=== PATIENT | male | born 1965 | race Caucasian/White ===

== ENCOUNTER 2019-07-28 16:37 | Emergency (ER) | payer BC ==
[2019-07-28] MEDS ORDERED: NA CHLORIDE 0.9% 1,000 ML ONE (17:28)
[2019-07-28 17:56] LABS: Absolute Lymphocytes (CBC) 2.3 K/uL (0.7-4.9); Basophils % 0.6 % (0-1.3); Hematocrit 43.8 % (39.6-49.0); Lymphocytes % 24.3 % (15.3-44.8); MPV 7.6 fL (7.6-11.3); RBC Red Blood Cell Count 4.85 M/uL (4.33-5.43)
--- NOTE | 2019-07-28 18:04 | RAD REPORT ---
EXAM DESCRIPTION: US - Extremity Venous Uni Ltd - 07/28/2019 5:59 pm CLINICAL HISTORY: Pain;Swelling Leg swelling and edema. COMPARISON: <Comparisons> FINDINGS: Left lower extremity venous system was interrogated with Doppler technique. Normal flow, c ompressibility and augmentation was noted. There is no DVT present. IMPRESSION: No evidence of left lower extremity deep venous thrombosis.
[2019-07-28 18:05] LABS: Potassium 3.1 mmol/L (3.5-5.1); Protime INR 0.96
[2019-07-28] MEDS ORDERED: POTASSIUM 25 MEQ EFFERV TAB ONE (18:24)
[2019-07-28] MEDS ORDERED: SMZ./TMP. 800/160 MG TABLET ONE (18:50)
[2019-07-28] MEDS ORDERED: DOXYCYCLINE 100 MG CAP PO ONE (18:50)
--- NOTE | 2019-07-28 18:56 | ER ---
Nurse's Notes [facility] Name: Michael Patel Age: 54 yrs Sex: Male : 1965 Arrival Date: 07/28/2019 Time: 16:41 Bed 27 Private MD: Amilcar Hoyos Diagnosis: Cellulitis of left lower limb Presentation: 07/28 16:44 Presenting complaint: Left lower leg redness, pain, and swelling upon waking today. hb Transition of care: patient was not received from another setting of care. Onset of symptoms was July 28, 2019. Risk Assessment: Do you want to hurt yourself or someone else?. Care prior to arrival: None. 16:44 Method Of Arrival: Ambulatory hb 16:44 Acuity: CEDRICK 3 hb 17:44 Initial Sepsis Screen: Does the patient meet any 2 criteria? No. Patient's initial rv sepsis screen is negative. Does the patient have a suspected source of infection? Yes: Skin breakdown/wound. Historical: - Allergies: 16:46 No Known Allergies; hb - Home Meds: 16:46 Simvastatin Oral [Active]; Nifedipine Oral [Active]; losartan oral oral [Active]; hb Humulin R [Active]; - PMHx: 16:46 Diabetes - IDDM; Insulin Pump; Hypertension; hb - PSHx: 16:46 Right arm; Appendectomy; hb - Immunization history:: Adult Immunizations up to date. - Social history:: Smoking status: Patient/guardian denies using tobacco. - Ebola Screening: : No symptoms or risks identified at this time. Screenin:44 Abuse screen: Denies threats or abuse. Denies injuries from another. Nutritional rv screening: No deficits noted. Tuberculosis screening: No symptoms or risk factors identified. Fall Risk None identified. Assessment: 17:42 General: Appears in no apparent distress. comfortable, Behavior is calm, cooperative. rv Pain: Complains of pain in left leg. Neuro: Level of Consciousness is awake, alert, obeys commands, Oriented to person, place, time, situation. Cardiovascular: Patient's skin is warm and dry. Respiratory: Airway is patent. GI: No signs and/or symptoms were reported involving the gastrointestinal system. : No signs and/or symptoms were reported regarding the genitourinary system. EENT: No signs and/or symptoms were reported regarding the EENT system. Derm: Skin redness on the left lower leg. Musculoskeletal: Swelling present in left leg. 18:46 Reassessment: blood sugar is low. given orange juice and potassium oral replacement as rv ordered. rechecked sugar after giving juice, blood sugar went up to 175 now. outlined the area of redness/swelling on the left leg. Vital Signs: 16:46 BP 153 / 98; Pulse 95; Resp 16; Temp 98.9; Pulse Ox 100% on R/A; Weight 104.33 kg; hb Height 5 ft. 6 in. (167.64 cm); Pain 3/10; 18:00 BP 145 / 93; Pulse 96; Resp 17; Pulse Ox 100% ; rv 19:03 BP 141 / 89; Pulse 95; Resp 17; Temp 98.5; Pulse Ox 100% on R/A; rv 16:46 Body Mass Index 37.12 (104.33 kg, 167.64 cm) hb ED Course: 16:41 Patient arrived in ED. as 16:41 Amilcar Hoyos MD is Private Physician. as 16:44 Triage completed. hb 16:46 Arm band placed on. hb 16:47 Laci Banda, SHIMA is Primary Nurse. rv 16:49 Roly Marsh PA is PHCP. cp 16:49 Merrill Weaver MD is Attending Physician. cp 17:36 Initial lab(s) drawn, by or, sent to lab. First set of blood cultures drawn by or. lt1 17:39 Inserted saline lock: 20 gauge in right antecubital area, using aseptic technique. lt1 17:44 Patient has correct armband on for positive identification. Call light in reach. Side rv rails up X 1. Pulse ox on. NIBP on. 17:59 US Extremity Venous Unilateral Ltd In Process Unspecified. EDMS 18:09 Pedro Martinez MD is Attending Physician. cp 18:14 Second set of blood cultures drawn by or. lt1 18:55 Amilcar Hoyos MD is Referral Physician. cp 19:02 No provider procedures requiring assistance completed. IV discontinued, intact, rv bleeding controlled, No redness/swelling at site. Pressure dressing applied. Administered Medications: 17:45 Drug: NS 0.9% 1000 ml Route: IV; Rate: 1 bolus; Site: right antecubital; rv 18:32 Follow up: IV Status: Completed infusion; IV Intake: 1000ml rv 18:32 Drug: Potassium Effervescent Tablet 50 mEq Route: PO; rv 19:01 Follow up: Response: No adverse reaction rv 19:01 Drug: Doxycycline 100 mg Route: PO; rv 19:01 Follow up: Response: Medication administered at discharge. rv 19:01 Drug: Bactrim (160 mg-800 mg (DS) 1 tablet Route: PO; rv 19:01 Follow up: Response: Medication administered at discharge. rv Intake: 18:32 IV: 1000ml; Total: 1000ml. rv Outcome: 18:55 Discharge ordered by MD. cp 19:02 Discharged to home ambulatory, with family. rv 19:02 Condition: good 19:02 Discharge instructions given to patient, Instructed on discharge instructions, follow up and referral plans. medication usage, Demonstrated understanding of instructions, follow-up care, medications, Prescriptions given X 3. 19:03 Patient left the ED. rv Signatures: Dispatcher [employer] EDMS Marisa Martínez Corey, PA PA Tracy Lang, RN RN Laci Banda, RN RN Monika Zhang lt1
--- NOTE | 2019-07-28 18:56 | EDPHYS ---
Physician Documentation [facility] Name: Michael Patel Age: 54 yrs Sex: Male : 1965 Arrival Date: 07/28/2019 Time: 16:41 Bed 27 Private MD: Amilcar Hoyos ED Physician Pedro Martinez HPI: 07/28 17:15 This 54 yrs old Male presents to ER via Ambulatory with complaints of Leg cp Swelling. 17:15 The patient presents with pain, that is acute, swelling, tenderness, erythema. cp 17:15 The complaints affect the left lower leg. Context: resulted from an unknown cause, the cp patient can fully bear weight, the patient is able to ambulate, Problem is a result from a previous injury: No. Onset: The symptoms/episode began/occurred this morning. Modifying factors: The symptoms are alleviated by nothing. Associated signs and symptoms: Pertinent positives: calf tenderness, swelling, warmth, Pertinent negatives fever, numbness, vomiting. Treatment prior to arrival includes: no previous treatment. Historical: - Allergies: 16:46 No Known Allergies; hb - Home Meds: 16:46 Simvastatin Oral [Active]; Nifedipine Oral [Active]; losartan oral oral [Active]; hb Humulin R [Active]; - PMHx: 16:46 Diabetes - IDDM; Insulin Pump; Hypertension; hb - PSHx: 16:46 Right arm; Appendectomy; hb - Immunization history:: Adult Immunizations up to date. - Social history:: Smoking status: Patient/guardian denies using tobacco. - Ebola Screening: : No symptoms or risks identified at this time. ROS: 17:20 Constitutional: Negative for body aches, chills, fever, poor PO intake. cp 17:20 Eyes: Negative for injury, pain, redness, and discharge. cp 17:20 ENT: Negative for drainage from ear(s), ear pain, sore throat, difficulty swallowing, difficulty handling secretions. 17:20 Cardiovascular: Negative for chest pain, palpitations. 17:20 Respiratory: Negative for cough, shortness of breath, wheezing. 17:20 Abdomen/GI: Negative for abdominal pain, nausea, vomiting, and diarrhea. 17:20 MS/extremity: Positive for erythema, pain, swelling, tenderness, warmth, of the left lower leg, Negative for injury or acute deformity, decreased range of motion. 17:20 Neuro: Negative for altered mental status, headache, weakness. 17:20 All other systems are negative. Exam: 17:30 Constitutional: The patient appears in no acute distress, alert, awake, cp non-diaphoretic, non-toxic, well developed, well nourished. 17:30 Head/Face: Normocephalic, atraumatic. cp 17:30 Eyes: Periorbital structures: appear normal, Conjunctiva: normal, no exudate, no injection, Sclera: no appreciated abnormality, Lids and lashes: appear normal, bilaterally. 17:30 ENT: External ear(s): are unremarkable, Nose: is normal, Mouth: Lips: moist, Oral mucosa: pink and intact, moist, Posterior pharynx: is normal, airway is patent, no erythema, no exudate. 17:30 Chest/axilla: Inspection: normal. 17:30 Cardiovascular: Rate: normal, Rhythm: regular. 17:30 Respiratory: the patient does not display signs of respiratory distress, Respirations: normal, no use of accessory muscles, no retractions, no splinting, no tachypnea, labored breathing, is not present. 17:30 Abdomen/GI: Exam negative for discomfort, distension, guarding, Inspection: abdomen appears normal. 17:30 Skin: abscess, not appreciated, cellulitis, that is moderate, irregular, on the left lower leg, induration, is not appreciated. Vital Signs: 16:46 BP 153 / 98; Pulse 95; Resp 16; Temp 98.9; Pulse Ox 100% on R/A; Weight 104.33 kg; hb Height 5 ft. 6 in. (167.64 cm); Pain 3/10; 18:00 BP 145 / 93; Pulse 96; Resp 17; Pulse Ox 100% ; rv 19:03 BP 141 / 89; Pulse 95; Resp 17; Temp 98.5; Pulse Ox 100% on R/A; rv 16:46 Body Mass Index 37.12 (104.33 kg, 167.64 cm) hb MDM: 16:54 Patient medically screened. cp 18:00 Differential diagnosis: cellulitis, DVT, abscess, sepsis. cp 18:55 Data reviewed: vital signs, nurses notes, lab test result(s), radiologic studies, cp ultrasound. 18:55 Counseling: I had a detailed discussion with the patient and/or guardian regarding: the cp historical points, exam findings, and any diagnostic results supporting the discharge/admit diagnosis, lab results, radiology results, the need for outpatient follow up, a family practitioner, to return to the emergency department if symptoms worsen or persist or if there are any questions or concerns that arise at home. Response to treatment: the patient's symptoms have mildly improved after treatment, and as a result, I will discharge patient. ED course: VSS. Patient appears non-toxic. Oral antibiotics initiated in ED and will discharge to home for continued monitoring. 07/28 17:18 Order name: CBC with Diff; Complete Time: 18:02 cp 07/28 18:02 Interpretation: Normal except: MN% 14.6; MNA 1.4. cp 07/28 17:18 Order name: BMP; Complete Time: 18:10 cp 07/28 18:10 Interpretation: Normal except: K 3.1; GLUC 70; GFR 66. cp 07/28 17:18 Order name: PT-INR; Complete Time: 18:41 cp 07/28 17:18 Order name: Ptt, Activated; Complete Time: 18:41 cp 07/28 17:18 Order name: Procalcitonin; Complete Time: 18:41 cp 07/28 18:41 Interpretation: Reviewed. cp 07/28 17:18 Order name: Lactate; Complete Time: 18:10 cp 07/28 17:11 Order name: US Extremity Venous Unilateral Ltd; Complete Time: 18:10 cp 07/28 17:18 Order name: IV; Complete Time: 17:40 cp 07/28 17:18 Order name: Blood Culture Adult (2) cp 07/28 18:54 Order name: Glucose, Ancillary Testing EDMS 07/28 18:44 Order name: Misc. Order: outline area of erythema left lower leg; Complete Time: 18:46 cp Administered Medications: 17:45 Drug: NS 0.9% 1000 ml Route: IV; Rate: 1 bolus; Site: right antecubital; rv 18:32 Follow up: IV Status: Completed infusion; IV Intake: 1000ml rv 18:32 Drug: Potassium Effervescent Tablet 50 mEq Route: PO; rv 19:01 Follow up: Response: No adverse reaction rv 19:01 Drug: Doxycycline 100 mg Route: PO; rv 19:01 Follow up: Response: Medication administered at discharge. rv 19:01 Drug: Bactrim (160 mg-800 mg (DS) 1 tablet Route: PO; rv 19:01 Follow up: Response: Medication administered at discharge. rv Disposition: 07/28/19 18:55 Discharged to Home. Impression: Cellulitis of left lower limb. - Condition is Stable. - Discharge Instructions: Cellulitis, Adult. - Prescriptions for Ibuprofen 800 mg Oral Tablet - take 1 tablet by ORAL route every 8 hours As needed take with food; 30 tablet. Doxycycline Hyclate 100 mg Oral Tablet - take 1 tablet by ORAL route every 12 hours; 20 tablet. Bactrim DS 800- 160 mg Oral Tablet - take 1 tablet by ORAL route every 12 hours for 10 days; 20 tablet. - Medication Reconciliation Form, Thank You Letter, Antibiotic Education, Prescription Opioid Use form. - Follow up: Amilcar Hoyos MD; When: 48 Hours; Reason: Recheck today's complaints. - Problem is new. - Symptoms have improved. Addendum: 07/30/2019 15:35 Co-signature as Attending Physician, Pedro Martinez MD I agree with the assessment and t w4 plan of care. Signatures: Dispatcher [employer] EDMS Roly Marsh PA PA cp Tracy Chavez RN RN Pedro Martinez MD MD tw4 Laci Banda RN RN rv Corrections: (The following items were deleted from the chart) 07/28 18:02 18:02 Normal except: MN% 14.6. cp cp 19:03 18:55 07/28/2019 18:55 Discharged to Home. Impression: Cellulitis of left lower limb. rv Condition is Stable. Forms are Medication Reconciliation Form, Thank You Letter, Antibiotic Education, Prescription Opioid Use. Follow up: Amilcar Hoyos; When: 48 Hours; Reason: Recheck today's complaints. Problem is new. Symptoms have improved. cp
[2019-07-28 19:10] VITALS: TEMP 98.9; O2SAT 100
[2019-07-28 19:11] VITALS: BP 145/93
== END 2019-07-28 19:03 | disposition home or self-care (01) ==
LOC: ER 16:37
DX: L03.116 Cellulitis of left lower limb (principal); E11.21 Type 2 diabetes mellitus with diabetic nephropathy; I10 Essential (primary) hypertension; Z79.4 Long term (current) use of insulin
CPT/HCPCS: 87040 ×2; 85025; 80048; 36415; 85610; 82947; 83605; 85730; 84145; 93971; 96360; 99284; J7030

== ENCOUNTER 2021-07-05 12:49 | Observation (INO) | payer BC ==
[2021-07-05 13:19] LABS: Basophils % 0.6 % (0-1.3); Hematocrit 43.5 % (39.6-49.0); MPV 7.8 fL (7.6-11.3); RBC Red Blood Cell Count 4.76 M/uL (4.33-5.43)
[2021-07-05 13:27] LABS: Protime INR 0.91
[2021-07-05 14:01] LABS: BUN Blood Urea Nitrogen 15 mg/dL (7-18); Glucose Level 218 mg/dL (74-106); Magnesium 2.5 mg/dL (1.8-2.4); NT PRO-BNP 11 pg/mL (<125); Potassium 3.3 mmol/L (3.5-5.1); Sodium Level 140 mmol/L (136-145); Troponin (Emerg Dept Use Only) < 0.02 ng/mL (0.0-0.045)
[2021-07-05 14:10] LABS: Bicarbonate 12 mmol/L (21-32)
--- NOTE | 2021-07-05 14:27 | RAD REPORT ---
EXAM DESCRIPTION: Mago Angio07/05/2021 2:07 pm CLINICAL HISTORY: Syncope/seizure COMPARISON: None TECHNIQUE: 50 cc Isovue 370 was administered intravenously. 3D MIP reconstruction performed All CT scans are performed using dose optimization technique as appropriate and may include automated exposure control or mA/KV adjustment according to patient size. FINDINGS: The very proximal left common carotid artery is not included in the field of view and is n ot evaluated. Mild plaque is present within common carotid, internal carotid and external carotid arteries bilatera lly. Left vertebral artery is dominant. Mild to moderate calcified plaque is present within the distal tatianna tebral arteries. IMPRESSION: Mild to moderate calcified plaque within the distal vertebral arteries estimated to resu lt in a 30-40% stenosis Mild plaque in the carotid arteries NASCET criteria used. Mild 0-49% stenosis Moderate 50-69% stenosis Severe 70-99% stenosis
--- NOTE | 2021-07-05 14:33 | RAD REPORT ---
EXAM DESCRIPTION: CTHead angio07/05/2021 2:07 pm CLINICAL HISTORY: Syncope/seizure COMPARISON: None TECHNIQUE: CT angiogram of the head was obtained. 3D MIPS reconstruction performed. 75 cc Isovue [address] scans are performed using dose optimization technique as appropriate and may include automated exposure control or mA/KV adjustment according to patient size. FINDINGS: The basilar, internal carotid, anterior cerebral, middle cerebral and posterior cerebral a rteries are normal caliber. An aneurysm is not seen. A significant stenosis is not noted. IMPRESSION: Unremarkable CT angiogram head.
--- NOTE | 2021-07-05 14:33 | RAD REPORT ---
EXAM DESCRIPTION: CT - Head Brain Wo Cont - 07/05/2021 2:07 pm CLINICAL HISTORY: Seizure/syncope COMPARISON: None TECHNIQUE: Computed axial tomography of the head was obtained. IV contrast was not requested. All CT scans are performed using dose optimization technique as appropriate and may include automated exposure control or mA/KV adjustment according to patient size. FINDINGS: An intracranial bleed is not seen . The ventricles are normal in caliber. No extra-axial fluid collection is noted. A vague 2 centimeter low-density area right temporal lobe Fluid within the sinuses/ mastoids is not seen. IMPRESSION: Vague 2 centimeter low-density area right temporal lobe . MRI recommended
[2021-07-05] MEDS ORDERED: NA CHLORIDE 0.9% 1,000 ML ONE (14:43)
--- NOTE | 2021-07-05 14:49 | RAD REPORT ---
EXAM DESCRIPTION: CT - Angio Aorta For Dissection - 07/05/2021 2:07 pm CLINICAL HISTORY: . Chest and abd pain COMPARISON: None TECHNIQUE: Computed tomography angiography of the chest, abdomen pelvis were obtained. 75 cc Isovue 370 was administered intravenously. Coronal and sagittal reconstruction were performed. MIP 3D reconstruction was performed All CT scans are performed using dose optimization technique as appropriate and may include automated exposure control or mA/KV adjustment according to patient size. FINDINGS: The opacification of the aorta is suboptimal as the requested amount of contrast was less than normal. An aortic dissection is not seen. An aortic aneurysm is not displayed. The celiac, SMA and LORETO are patent . A lung consolidation is not present. A pericardial effusion is not seen. A pleural effusion is not no wendi. The liver,spleen, pancreas, adrenals and kidneys demonstrate no significant abnormality. There no evidence diverticulitis. IMPRESSION: No gross evidence for an aortic dissection.
--- NOTE | 2021-07-05 14:50 | RAD REPORT ---
EXAM DESCRIPTION: Lana Single View07/05/2021 1:21 pm CLINICAL HISTORY: Seizure COMPARISON: 2008 FINDINGS: The lungs appear clear of acute infiltrate. The heart is upper limits normal size IMPRESSION: No acute abnormalities displayed
[2021-07-05] MEDS ORDERED: levETIRAcetam 1,000 MG in NA CHLORIDE 0.9% 100 ML IV ONE (15:00)
--- NOTE | 2021-07-05 15:06 | EDPHYS ---
Physician Documentation [facility] Name: Michael Patel Age: 56 yrs Sex: Male : 1965 Arrival Date: 07/05/2021 Time: 13:03 Bed 14 Private MD: ED Physician Paulo Sue HPI: 07/05 14:01 This 56 yrs old Male presents to ER via EMS with complaints of Found rn unresponsive on ground. 14:01 The patient presents with decreased responsiveness. Onset: The symptoms/episode rn began/occurred just prior to arrival. Possible causes: unknown. Associated signs and symptoms: The patient has no apparent associated signs or symptoms. Current symptoms: In the emergency department the patient's symptoms have improved. The patient has not experienced similar symptoms in the past. The patient has not recently seen a physician. EMS reports patient at work, smelled something funny, went outside to check on it and when coworkers checked on him was unresponsive on ground with purple color. No seizure activity noted and no history of seizures. Patient does not recall what happened other than smelling a funny smell. No report of leak at plan. Bystanders did chest compressions. Patient briefly woke up with slow return to baseline. Currently patient states feels like mouth is dry like [place] and requests water. Denies feeling ill recently or any fever. Denies any chest or abdominal pain.. - Immunization history:: Adult Immunizations up to date, Client reports receiving the 2nd dose of the Covid vaccine. - Social history:: Smoking status: Patient denies any tobacco usage or history of. - Family history:: not pertinent. - Hospitalizations: : No recent hospitalization is reported. ROS: 14:01 Constitutional: Negative for fever, chills, and weight loss, Eyes: Negative for injury, rn pain, redness, and discharge, ENT: Negative for injury, pain, and discharge, Neck: Negative for injury, pain, and swelling, Cardiovascular: Negative for chest pain, palpitations, and edema, Respiratory: Negative for shortness of breath, cough, wheezing, and pleuritic chest pain, Abdomen/GI: Negative for abdominal pain, nausea, vomiting, diarrhea, and constipation, Back: Negative for injury and pain, : Negative for injury, bleeding, discharge, and swelling, MS/Extremity: Negative for injury and deformity, Skin: Negative for injury, rash, and discoloration, Neuro: Negative for headache, weakness, numbness, tingling, and seizure. Exam: 13:44 Constitutional: This is a well developed, well nourished patient who is awake, alert, rn seems confused Head/Face: Normocephalic, mild swelling left temporal region Eyes: Pupils equal round and reactive to light, extra-ocular motions intact. Lids and lashes normal. Conjunctiva and sclera are non-icteric and not injected. Cornea within normal limits. Periorbital areas with no swelling, redness, or edema. Cardiovascular: Tachycardic, regular. No pulse deficits. Respiratory: No increased work of breathing, no retractions or nasal flaring. Abdomen/GI: Soft, non-tender Skin: Warm, dry MS/ Extremity: Pulses equal, no cyanosis. Neurovascular intact. Full, normal range of motion. Equal circumference. Neuro: Awake and alert, GCS 15, oriented to person, place, time, and situation. Cranial nerves II-XII grossly intact. Motor strength 5/5 in all extremities. Sensory grossly intact. Cerebellar exam normal. + mild dysarthria that improves slightly with water. No difficulty swallowing. Vital Signs: 13:21 BP 131 / 83; Pulse 113; Resp 18; Temp 98; Pulse Ox 96% on R/A; Weight 99.79 kg; Height ch5 5 ft. 6 in. (167.64 cm); Pain 0/10; 15:13 BP 135 / 81; Pulse 96; Resp 18; Temp 98.1; Pulse Ox 100% ; aj2 21:48 BP 139 / 92; Pulse 87; Resp 20; Temp 98.8; Pulse Ox 99% on R/A; Pain 1/10; kc4 13:21 Body Mass Index 35.51 (99.79 kg, 167.64 cm) ch5 NIH Stroke Scale Scores: 13:44 NIHSS Score: 1 rn [place] Coma Score: 21:48 Eye Response: spontaneous(4). Verbal Response: oriented(5). Motor Response: obeys kc4 commands(6). Total: 15. MDM: 13:03 Patient medically screened. rn 14:01 ED course: Speech seems overall improved from initial presentation, patient still feels rn like his mouth is dry. No focal signs on exam otherwise. But does point out that the fluency of speech seems off at times. Patient is able to identify objects and naming is correct.. 14:22 ED course: Right posterior tongue with ecchymosis, which explains his difficulty rn speaking and only finding.. 15:01 Differential Diagnosis: CVA, electrolyte abnormality, hypoglycemia, intracranial bleed, rn seizure, volume depletion. Data reviewed: vital signs, nurses notes, lab test result(s), EKG, radiologic studies, CT scan, and as a result, I will admit patient. Data interpreted: gambling monitor: rate is 98 beats/min, rhythm is normal sinus rhythm, regular, with no ectopy, Interpretation: normal rate, normal rhythm, Pulse oximetry: on room air is 96 %. Interpretation: acceptable. Counseling: I had a detailed discussion with the patient and/or guardian regarding: the historical points, exam findings, and any diagnostic results supporting the discharge/admit diagnosis, lab results, radiology results, the need for further work-up and treatment in the hospital. Response to treatment: the patient's symptoms have markedly improved after treatment, and as a result, I will admit patient. Admission orders: after a detailed discussion of the patient's condition and case, the admit orders are written by me. ED course: Consulted with Dr. Ross, recommends loading with Keppra. Will admit patient for acidosis and new onset seizure as well as to obtain MRI to further evaluate temporal lesion. Dr. Hoyos going out of [facility], will admit to hospitalist service.. 07/05 13:04 Order name: Basic Metabolic Panel rn 07/05 13:04 Order name: CBC with Diff rn 07/05 13:04 Order name: Magnesium rn 07/05 13:04 Order name: NT PRO-BNP rn 07/05 13:04 Order name: PT-INR; Complete Time: 13:31 rn 07/05 13:04 Order name: Troponin (emerg Dept Use Only); Complete Time: 14:15 rn 07/05 13:04 Order name: Basic Metabolic Panel; Complete Time: 14:15 EDMS 07/05 13:04 Order name: CBC with Automated Diff; Complete Time: 13:31 EDMS 07/05 13:04 Order name: Magnesium; Complete Time: 14:15 EDMT 07/05 13:04 Order name: NT PRO-BNP; Complete Time: 14:15 EDMS 07/05 13:06 Order name: Glucose, Ancillary Testing; Complete Time: 13:31 EDMT 07/05 15:54 Order name: SARS-COV-2 RT PCR; Complete Time: 21:52 EDMT 07/05 22:15 Order name: Glucose, Ancillary Testing EDMT 07/05 13:04 Order name: XRAY Chest (1 view); Complete Time: 14:57 rn 07/05 13:04 Order name: EKG; Complete Time: 13:04 rn 07/05 13:04 Order name: Cardiac monitoring; Complete Time: 14:22 rn 07/05 13:04 Order name: EKG - Nurse/Tech; Complete Time: 14:22 rn 07/05 13:04 Order name: IV Saline Lock; Complete Time: 14:22 rn 07/05 13:04 Order name: Labs collected and sent; Complete Time: 14:22 rn 07/05 13:04 Order name: O2 Per Protocol; Complete Time: 14:22 rn 07/05 13:04 Order name: O2 Sat Monitoring; Complete Time: 14:22 rn 07/05 13:04 Order name: CT Head Brain wo Cont; Complete Time: 14:43 rn 07/05 13:04 Order name: CT Aorta for Dissection; Complete Time: 14:57 rn 07/05 13:44 Order name: CT Head Angio; Complete Time: 14:43 rn 07/05 13:44 Order name: CT Neck Angio; Complete Time: 14:43 rn 07/05 16:58 Order name: CONS Physician Consult EDMT Administered Medications: 14:22 Drug: NS 0.9% 1000 ml Route: IV; Rate: 1000 ml; Site: right hand; kg 15:30 Drug: Keppra (levETIRAcetam) 1000 mg Route: IV; Rate: calculated rate; Site: right aj2 antecubital; Disposition Summary: 07/05/21 15:05 Hospitalization Ordered Hospitalization Status: Observation rn Provider: Leonardo Sue rn Condition: Stable rn Problem: new rn Symptoms: have improved rn Bed/Room Type: Standard rn Location: Telemetry/MedSurg (observation)(07/05/21 21:10) tl1 Room Assignment: 204(07/05/21 21:10) tl1 Diagnosis - Epileptic seizures related to external causes, not intractable, without status rn epilepticus - Acidosis rn Forms: - Medication Reconciliation Form rn - SBAR form rn NIH Stroke Scale - NIH Stroke Score Date: 07/05/2021 Time: 13:44 Total Score = 1 1a. Level of Consciousness (LOC) - 0(Alert) 1b. Level of Consciousness (LOC) (Month \T\ Age) - 0(Both) 1c. LOC Commands (Open \T\ Closes Eyes/Dispersion Mixer) - 0(Both) 2. Best Gaze (Lateral Gaze Paresis) - 0(Normal) 3. Visual Field Loss - 0(No visual loss) 4. Facial Palsy - 0(Normal) 5a. Left Arm: Motor (10-second hold) - 0(No drift) 5b. Right Arm: Motor (10-second hold) - 0(No drift) 6a. Left Leg: Motor (5-second hold - always test supine) - 0(No drift) 6b. Right Leg: Motor (5-second hold - always test supine) - 0(No drift) 7. Limb Ataxia (finger/nose \T\ heel/monroy - test with eyes open) - 0(Absent) 8. Sensory Loss (pinprick arms/legs/face) - 0(Normal) 9. Best Language: Aphasia (description/naming/reading) - 0(No aphasia) 10. Dysarthria (speech clarity - read or repeat words) - 1(Mild to Moderate) 11. Extinction and Inattention (visual/tactile/auditory/spatial/personal) - 0(No abnormality) Initials: rn Signatures: Dispatcher [employer] EDMS Paulo Sue MD MD rn Attema, Lee, MILLWRIGHT-C MILLWRIGHT-Cla1 Lily Rai RN RN tl1 Robyn Ramsey RN RN kg Jenkins, Angelea aj2 Heath, Christopher, RN RN ch5 Corrections: (The following items were deleted from the chart) 13:27 13:27 PMHx: Diabetes - IDDM; ch5 ch5 13:27 13:27 PMHx: Insulin pump; ch5 ch5 13:27 13:27 PMHx: Hypertension; ch5 ch5 15:02 13:32 CORONAVIRUS+MR.LAB.BRZ ordered. EDMT EDMT 19:21 15:05 Telemetry/MedSurg (observation) rn tl1 19:21 15:05 rn tl1 21:10 19:21 [facility] ER HOLD tl1 tl1 21:10 19:21 ERHOLD- tl1 tl1
--- NOTE | 2021-07-05 15:06 | ER ---
Nurse's Notes [facility] Name: Michael Patel Age: 56 yrs Sex: Male : 1965 Arrival Date: 07/05/2021 Time: 13:03 Bed 14 Private MD: Diagnosis: Epileptic seizures related to external causes, not intractable, without status epilepticus;Acidosis Presentation: 07/05 13:21 Chief complaint: EMS states: EMS called out for Unconscious unresponsive. Pt was down ch5 for a few minutes till friends walked out to find hi. " I smelt something sweet and went outside to look. C/O swollen tongue and extreme thirst. Coronavirus screen:. Ebola Screen: Patient negative for fever greater than or equal to 101.5 degrees Fahrenheit, and additional compatible Ebola Virus Disease symptoms Patient denies exposure to infectious person. Patient denies travel to an Ebola-affected area in the 21 days before illness onset. Initial Sepsis Screen: Does the patient meet any 2 criteria? No. Patient's initial sepsis screen is negative. Initial Sepsis Screen: Does the patient have a suspected source of infection? No. Patient's initial sepsis screen is negative. Risk Assessment: Do you want to hurt yourself or someone else? Patient reports no desire to harm self or others. Onset of symptoms was July 05, 2021. 13:21 Method Of Arrival: EMS: [place] [id number] 13:21 Acuity: CEDRICK 2 5 Triage Assessment: 13:27 General: Appears in no apparent distress. Behavior is calm, cooperative, drowsy. ch5 General: Pt's tongue feels swollen. Neuro: No deficits noted. - Immunization history:: Adult Immunizations up to date, Client reports receiving the 2nd dose of the Covid vaccine. - Social history:: Smoking status: Patient denies any tobacco usage or history of. - Family history:: not pertinent. - Hospitalizations: : No recent hospitalization is reported. Screenin:28 Abuse screen: Denies threats or abuse. Denies injuries from another. Nutritional 5 screening: No deficits noted. Tuberculosis screening: No symptoms or risk factors identified. Fall Risk None identified. Assessment: 15:13 Reassessment: Patient appears in no apparent distress at this time. Patient and/or aj2 family updated on plan of care and expected duration. Pain level reassessed. Patient is alert, oriented x 3, equal unlabored respirations, skin warm/dry/pink. Patient states feeling better. 21:48 Reassessment: Patient is alert, oriented x 3, equal unlabored respirations, skin kc4 warm/dry/pink. Patient denies pain at this time. Patient states feeling better. Vital Signs: 13:21 BP 131 / 83; Pulse 113; Resp 18; Temp 98; Pulse Ox 96% on R/A; Weight 99.79 kg; Height ch5 5 ft. 6 in. (167.64 cm); Pain 0/10; 15:13 BP 135 / 81; Pulse 96; Resp 18; Temp 98.1; Pulse Ox 100% ; aj2 21:48 BP 139 / 92; Pulse 87; Resp 20; Temp 98.8; Pulse Ox 99% on R/A; Pain 1/10; kc4 13:21 Body Mass Index 35.51 (99.79 kg, 167.64 cm) ch5 [place] Coma Score: 21:48 Eye Response: spontaneous(4). Verbal Response: oriented(5). Motor Response: obeys kc4 commands(6). Total: 15. NIH Stroke Scale Scores: 13:44 NIHSS Score: 1 internet network specialist Course: 13:03 Patient arrived in ED. rn 13:03 Paulo Sue MD is Attending Physician. rn 13:21 XRAY Chest (1 view) In Process Unspecified. EDMS 13:26 Triage completed. ch5 13:27 Arm band placed on right wrist. ch5 13:28 Placed in gown. Bed in low position. Call light in reach. Side rails up X2. ch5 13:28 Inserted saline lock: 18 gauge in right forearm, using aseptic technique. ch5 14:07 CT Head Brain wo Cont In Process Unspecified. EDMS 14:07 CT Aorta for Dissection In Process Unspecified. EDMS 14:07 CT Head Angio In Process Unspecified. EDMS 14:07 CT Neck Angio In Process Unspecified. EDMS 14:16 Xena Young is Primary Nurse. aj2 14:22 NT PRO-BNP Sent. kg 14:22 Magnesium Sent. kg 14:22 CBC with Diff Sent. kg 14:23 Basic Metabolic Panel Sent. kg 15:03 Leonardo Sue MD is Hospitalizing Provider. rn 15:13 No apparent distress. Resting quietly. aj2 15:13 No provider procedures requiring assistance completed. IV is patent, is intact. aj2 21:48 Placed in gown. Bed in low position. Call light in reach. Side rails up X2. kc4 22:51 Patient admitted, IV remains in place. bs2 Administered Medications: 14:22 Drug: NS 0.9% 1000 ml Route: IV; Rate: 1000 ml; Site: right hand; kg 15:30 Drug: Keppra (levETIRAcetam) 1000 mg Route: IV; Rate: calculated rate; Site: right aj2 antecubital; Outcome: 15:05 Decision to Hospitalize by Provider. rn 22:50 Admitted to Med/surg accompanied by nurse, room 204, with chart, Report called to joselin Sepulveda RN 22:50 Condition: stable 22:50 Instructed on the need for admit. 22:51 Patient left the ED. bs2 NIH Stroke Scale - NIH Stroke Score Date: 07/05/2021 Time: 13:44 Total Score = 1 1a. Level of Consciousness (LOC) - 0(Alert) 1b. Level of Consciousness (LOC) (Month \\T\\ Age) - 0(Both) 1c. LOC Commands (Open \\T\\ Closes Eyes/Classifier) - 0(Both) 2. Best Gaze (Lateral Gaze Paresis) - 0(Normal) 3. Visual Field Loss - 0(No visual loss) 4. Facial Palsy - 0(Normal) 5a. Left Arm: Motor (10-second hold) - 0(No drift) 5b. Right Arm: Motor (10-second hold) - 0(No drift) 6a. Left Leg: Motor (5-second hold - always test supine) - 0(No drift) 6b. Right Leg: Motor (5-second hold - always test supine) - 0(No drift) 7. Limb Ataxia (finger/nose \\T\\ heel/monroy - test with eyes open) - 0(Absent) 8. Sensory Loss (pinprick arms/legs/face) - 0(Normal) 9. Best Language: Aphasia (description/naming/reading) - 0(No aphasia) 10. Dysarthria (speech clarity - read or repeat words) - 1(Mild to Moderate) 11. Extinction and Inattention (visual/tactile/auditory/spatial/personal) - 0(No abnormality) Initials: rn Signatures: Dispatcher [employer] EDMS Paulo Sue MD MD rn Graham, Kristen, RN RN kg Olena Anthony RN RN bs2 Xena Young [facility] randallia Isaac Meadows RN RN ch5 Marissa French kc4 Corrections: (The following items were deleted from the chart) 13: 13:27 PMHx: Diabetes - IDDM; 5 ch5 13: 13:27 PMHx: Insulin pump; 5 ch5 13: 13:27 PMHx: Hypertension; [facility] 15:02 14:32 CORONAVIRUS+MR.LAB.BRZ drawn and sent. [address]
--- NOTE | 2021-07-05 15:56 | EKG ---
Test Date: 2021-07-05 Test Time: 12:59:00 Nursing Admin: NAGI MEASUREMENT RESULTS: Intervals: Rate: 121 LA: 164 QRSD: 96 QT: 322 QTc: 457 Grandy: P: 20 LA: 164 QRS: 49 T: 21 INTERPRETIVE STATEMENTS: Sinus tachycardia ST & T wave abnormality, consider inferior ischemia Abnormal ECG Compared to ECG 05/10/2009 11:05:06 ST (T wave) deviation now present Possible ischemia now present Sinus rhythm no longer present Electronically Signed On 07-05-21 15:56:13 CDT by Jake De La Torre
--- NOTE | 2021-07-05 17:10 | P.HP ---
Certification for Inpatient Patient admitted to: Observation With expected LOS: <2 Midnights Practitioner: I am a practitioner with admitting privileges, knowledge of patient current condition, hospital course, and medical plan of care. Services: Services provided to patient in accordance with Admission requirements found in Title 42 Section 412.3 of the Code of Federal Regulations Patient History Date of Service: 07/05/21 Reason for admission: New onset seizure History of Present Illness: 56-year-old male, PMH: Type I diabetic, hypertension, hypertriglyceridemia Was brought in by EMS to the ED after patient was found unresponsive at work. Patient states he was in his usual state of health, was during lunchtime when he smelled something funny, went outside to check on it, and took a while to come back so his coworkers checked on him and found him unresponsive on the ground and described his skin is a purplish color. No seizure activity was noted at that time and no seizure activity was noted by EMS during transport. Patient denies loss of bowel/bladder function, but he did bite his tongue. He states he checked his blood sugar at that time it was 150s. Denies any recent illness. His diabetic medications were changed approximately 4-6 weeks ago. In the ED, work-up revealed a hypodensity lesion in the CT brain, CTA was negative. Neurology was consulted, recommended Keppra load, and continuing on Keppra for seizure prophylaxis/treatment. He will also need an MRI for further evaluation. - Past Medical/Surgical History -: Hypertension -: Type I diabetes mellitus, with insulin pump -: Hyper triglyceridemia -: Appendectomy - Family History Father -: Heart disease - Social History Smoking Status: Current some day smoker Place of Residence: Home Review of Systems 10-point ROS is otherwise unremarkable Physical Examination - Studies Laboratory Data (last 24 hrs) 07/05/21 13:04: PT 10.4, INR 0.91 07/05/21 13:04: WBC 14.40 H, Hgb 14.3, Hct 43.5, Plt Count 366 07/05/21 13:04: Sodium 140, Potassium 3.3 L, BUN 15, Creatinine 1.39 H, Glucose 218 H, Magnesium 2.5 H Assessment and Plan - Advance Directives Does patient have a Living Will: No Does patient have a Durable POA for Healthcare: No Physician Review Additional Text: Physical exam GEN: Alert, oriented, NAD HEENT: Normal conjunctiva, sclera anicteric, ecchymosis under tongue, no active bleeding CV: Regular rate and rhythm, no edema Pulm: Nonlabored respiration on room air ABD: Soft, nontender, nondistended MSK: No joint tenderness Integumentary: No rashes Neuro: slight muffled speech, normal affect, CN II-XII grossly intact, str 5/5 bilateral upper/lower extremities Problem list New onset suspected seizure New finding of Hypodense lesion in the brain Hypertension Hyperlipidemia Type 1 diabetes, with insulin pump -neurology consulted -MRI ordered -keppra loaded in ER, continue 500mg PO BID -pt without difficulty swallowing water, having difficulty speaking secondary to biting tongue -bedside swallow screen by nursing staff -no focal findings on exam -lesion may be what provoked seizure -monitor overnight on telemetry -pt was initially post-ictal, now feeling better, still with some fatigue -PT consulted possible dc home tomorrow Time Spent Managing Pts Care (In Minutes): 60
[2021-07-05] MEDS ORDERED: ONDANSETRON 4 MG/2 ML VIAL IV PRN (21:11)
[2021-07-05] MEDS ORDERED: ACETAMINOPHEN 500 MG TAB PO PRN (21:11)
[2021-07-05] MEDS ORDERED: NA CHLORIDE 0.9% 1,000 ML IV SCH (21:11)
[2021-07-05] MEDS: INSULIN -REGULAR HUMAN 50 UNIT/0.5 ML ML SQ SCH (21:11)
[2021-07-05] MEDS: levETIRAcetam 500 MG TAB PO SCH (21:11)
[2021-07-05] MEDS ORDERED: levETIRAcetam 500 MG TAB ONE (22:21)
[2021-07-05 23:02] VITALS: BMI 35.2
[2021-07-06 01:47] VITALS: O2SAT 97
[2021-07-06 06:43] LABS: Absolute Lymphocytes (CBC) 1.9 K/uL (0.7-4.9); Basophils % 0.3 % (0-1.3); Hematocrit 36.1 % (39.6-49.0); Lymphocytes % 19.1 % (15.3-44.8); MPV 7.6 fL (7.6-11.3); RBC Red Blood Cell Count 4.05 M/uL (4.33-5.43)
[2021-07-06 07:03] LABS: Albumin 3.4 g/dL (3.4-5.0); Bilirubin Total 0.7 mg/dL (0.2-1.0); Magnesium 2.4 mg/dL (1.8-2.4); Potassium 3.6 mmol/L (3.5-5.1); Protein, Total 6.2 g/dL (6.4-8.2)
[2021-07-06 07:22] LABS: Urine Appearance CLEAR (Clear); Urine Bilirubin NEGATIVE (Negative); Urine Blood NEGATIVE (Negative); Urine Color YELLOW (Yellow); Urine Glucose NEGATIVE (Negative); Urine Protein NEGATIVE (Negative); Urine Specific Gravity 1.025 (1.005-1.030); Urine Urobilinogen 0.2 mg/dL (0.2-1.0); Urine pH 5.5 (5.0-7.0)
[2021-07-06 07:28] LABS: Urine Microscopic Reflex NO UMIC
[2021-07-06] MEDS: INSULIN -REGULAR HUMAN 50 UNIT/0.5 ML ML SQ SCH ×2 (07:30→11:30)
[2021-07-06] MEDS ORDERED: INFLUENZA VACCINE (for 6+ mo) 0.5 ML DOSE IMVAC ONE (08:00)
--- NOTE | 2021-07-06 09:17 | RAD REPORT ---
EXAM DESCRIPTION: MRI - MRA Head Wo Cont - 07/06/2021 9:06 am CLINICAL HISTORY: hypodensity seen on CT, new seizure COMPARISON: Head Brain Wo Cont dated 07/05/2021 FINDINGS: The bilateral internal carotid arteries are patent. The middle cerebral arteries and anter ior cerebral arteries are patent. The basilar artery and vertebral arteries are patent. The left vert ebral artery is dominant. No aneurysm, occlusion, stenosis, or arteriovenous malformation is identifi ed. IMPRESSION: Patent [place]. No occlusion, aneurysm, or stenosis.
--- NOTE | 2021-07-06 09:21 | RAD REPORT ---
EXAM DESCRIPTION: MRI - Brain W/Wo Cont - 07/06/2021 9:10 am CLINICAL HISTORY: hypodensity seen on CT, new seizure COMPARISON: MRA Head Wo Cont dated 07/06/2021 FINDINGS: Peripherally enhancing lesion centered in the right temporal lobe with adjacent vasogenic edema is noted. The vasogenic edema is mild. The lesion measures approximately 2.5 cm. It is T2 hyper intense. No mass effect or midline shift. No other lesions are identified. No evidence of acute infar ct. Flow voids are unremarkable. No hydrocephalus. Paranasal sinus thickening is noted. No mastoid ef fusion. Mild chronic small vessel ischemic changes. 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 Recommend neurosurgical consultation.
--- NOTE | 2021-07-06 09:23 | RAD REPORT ---
EXAM DESCRIPTION: MRI - MRA Neck W/Wo Cont - 07/06/2021 9:10 am CLINICAL HISTORY: hypodensity seen on CT, new seizure COMPARISON: No comparisons FINDINGS: Contrast enhance 2D [id number] MR angiography of the neck vessels was performed. The bilateral common carotid arteries, internal carotid arteries, external carotid arteries, and vert ebral arteries are patent. The left vertebral artery is slightly dominant. IMPRESSION: No stenosis or dissection identified within the neck.
[2021-07-06] MEDS ORDERED: POTASSIUM 25 MEQ EFFERV TAB PO ONE (10:00)
[2021-07-06] MEDS: levETIRAcetam 500 MG TAB PO SCH (11:37)
[2021-07-06 14:26] VITALS: BP 148/75; TEMP 97.3
--- NOTE | 2021-07-06 20:38 | P.DS ---
Admission Date: 07/05/21 Discharge Date: 07/06/21 Disposition: ROUTINE DISCHARGE Discharge Condition: GOOD Reason for Admission: New onset seizure Consultations: Neurology - Dr. Ross Procedures: CXR (07/05): FINDINGS: The lungs appear clear of acute infiltrate. The heart is upper limits normal size IMPRESSION: No acute abnormalities displayed CT Dissection (07/05): FINDINGS: The opacification of the aorta is suboptimal as the requested amount of contrast was less than normal. An aortic dissection is not seen. An aortic aneurysm is not displayed. The celiac, SMA and LORETO are patent . A lung consolidation is not present. A pericardial effusion is not seen. A pleural effusion is not noted. The liver,spleen, pancreas, adrenals and kidneys demonstrate no significant abnormality. There no evidence diverticulitis. IMPRESSION: No gross evidence for an aortic dissection. CT Head (07/05): FINDINGS: An intracranial bleed is not seen . The ventricles are normal in caliber. No extra-axial fluid collection is noted. A vague 2 centimeter low-density area right temporal lobe Fluid within the sinuses/ mastoids is not seen. IMPRESSION: Vague 2 centimeter low-density area right temporal lobe . MRI recommended CTA Head (07/05): FINDINGS: The basilar, internal carotid, anterior cerebral, middle cerebral and posterior cerebral arteries are normal caliber. An aneurysm is not seen. A significant stenosis is not noted. IMPRESSION: Unremarkable CT angiogram head. CTA Neck (07/05): FINDINGS: The very proximal left common carotid artery is not included in the field of view and is not evaluated. Mild plaque is present within common carotid, internal carotid and external ca rotid arteries bilaterally. Left vertebral artery is dominant. Mild to moderate calcified plaque is present within the distal vertebral arteries. IMPRESSION: Mild to moderate calcified plaque within the distal vertebral arteries estimated to result in a 30-40% stenosis MRI Brain (07/06): FINDINGS: Peripherally enhancing lesion centered in the right temporal lobe with adjacent vasogenic edema is noted. The vasogenic edema is mild. The lesion measures approximately 2.5 cm. It is T2 hyperintense. No mass effect or midline shift. No other lesions are identified. No evidence of acute infarct. Flow voids are unremarkable. No hydrocephalus. Paranasal sinus thickening is noted. No mastoid effusion. Mild chronic small vessel ischemic changes. IMPRESSION: Enhancing right temporal lobe mass concerning for neoplasm, either metastatic or primary [employer] tumor. Recommend neurosurgical consultation. MRA Brain (07/06): FINDINGS: The bilateral internal carotid arteries are patent. The middle cerebral arteries and anterior cerebral arteries are patent. The basilar artery and vertebral arteries are patent. The left vertebral artery is dominant. No aneurysm, occlusion, stenosis, or arteriovenous malformation is identified. IMPRESSION: Patent [facility] [facility] [employer]. No occlusion, aneurysm, or stenosis. MRA Neck (07/06): FINDINGS: Contrast enhance 2D [id number] MR angiography of the neck vessels was performed. The bilateral common carotid arteries, internal carotid arteries, external carotid arteries, and vertebral arteries are patent. The left vertebral artery is slightly dominant. IMPRESSION: No stenosis or dissection identified within the neck. Problem list 2cm mass in R temporal lobe, concerning for cancer New onset suspected seizure, secondary to suspected cancer Hypertension Hyperlipidemia Type 1 diabetes, with insulin pump Brief History of Present Illness: 56-year-old male, PMH: Type I diabetic, hypertension, hypertriglyceridemia Was brought in by EMS to the ED after patient was found unresponsive at work. Patient states he was in his usual state of health, was during lunchtime when he smelled something funny, went outside to check on it, and took a while to come back so his coworkers checked on him and found him unresponsive on the ground and described his skin is a purplish color. No seizure activity was noted at that time and no seizure activity was noted by EMS during transport. Patient denies loss of bowel/bladder function, but he did bite his tongue. He states he checked his blood sugar at that time it was 150s. Denies any recent illness. His diabetic medications were changed approximately 4-6 weeks ago. In the ED, work-up revealed a hypodensity lesion in the CT brain, CTA was negative. Neurology was consulted, recommended Keppra load, and continuing on Keppra for seizure prophylaxis/treatment. He will also need an MRI for further evaluation. Hospital Course: Patient underwent MRI revealing an ~2cm suspicious mass concerning for cancer. Unclear if primary [employer] T[employer]ER tumor vs metastasis. He did have a CT chest/abd/pelvis (dissection protocol) that was negative for any suspicious masses/lesions. He reported never having a colonoscopy. Neurology was consulted and suspected patient had an unwitnessed seizure at work. He was loaded with keppra in the ED and continued on 500mg BID. He did well, did not have any focal neurologic findings or further seizure like activity. He did bite his tongue during his unwitnessed seizure and had some ecchymosis, pain, swelling and numbness in certain areas. He was discharged home to follow up with [facility]ology in [place], [place]. Records were faxed to their office to help facilitate expedited follow up. He was also given a CD with the images. Vital Signs/Physical Exam: Physical exam GEN: Alert, oriented, NAD HEENT: Normal conjunctiva, sclera anicteric, ecchymosis under tongue, no active bleeding CV: Regular rate and rhythm, no edema Pulm: Nonlabored respiration on room air ABD: Soft, nontender, nondistended MSK: No joint tenderness Integumentary: No rashes Neuro: slight muffled speech, normal affect, CN II-XII grossly intact, str 5/5 bilateral upper/lower extremities Temp Pulse Resp BP Pulse Ox 97.3 F 75 16 148/75 H 99 07/06/21 12:00 07/06/21 12:00 07/06/21 12:00 07/06/21 12:00 07/06/21 12:00 Laboratory Data at Discharge: WBC 9.70 K/uL (4.3-10.9) D 07/06/21 06:20 Hgb 12.5 g/dL (13.6-17.9) L 07/06/21 06:20 Hct 36.1 % (39.6-49.0) L D 07/06/21 06:20 Plt Count 303 K/uL (152-406) 07/06/21 06:20 PT 10.4 SECONDS (9.5-12.5) 07/05/21 13:04 INR 0.91 07/05/21 13:04 Sodium 144 mmol/L (136-145) 07/06/21 06:20 Potassium 3.6 mmol/L (3.5-5.1) 07/06/21 06:20 BUN 12 mg/dL (7-18) 07/06/21 06:20 Creatinine 1.01 mg/dL (0.55-1.3) 07/06/21 06:20 Glucose 152 mg/dL (74-106) H 07/06/21 06:20 Magnesium 2.4 mg/dL (1.8-2.4) 07/06/21 06:20 Total Bilirubin 0.7 mg/dL (0.2-1.0) 07/06/21 06:20 AST 31 U/L (15-37) 07/06/21 06:20 ALT 42 U/L (12-78) 07/06/21 06:20 Alkaline Phosphatase 77 U/L (45-117) 07/06/21 06:20 Home Medications: Simvastatin [Zocor] 20 mg PO DAILY 07/06/21 levETIRAcetam [Keppra*] 500 mg PO BID 30 Days #60 tab 07/06/21 New Medications: levETIRAcetam [Keppra*] 500 mg PO BID 30 Days #60 tab Diet: ADA Activity: Ad patience Followup: Amilcar Hoyos MD [Primary Care Provider] - Time spent managing pt's care (in minutes): 45
== END 2021-07-06 16:14 | disposition home or self-care (01) ==
LOC: ER 12:49 → ERHOLD 16:56 → 2ND 21:36
PROVIDERS: ADMIT Hospitalist; ATTEND Hospitalist
DX: R56.9 Unspecified convulsions (principal); G93.89 Other specified disorders of brain; S01.552A Open bite of oral cavity, initial encounter; I10 Essential (primary) hypertension; E78.1 Pure hyperglyceridemia; E10.9 Type 1 diabetes mellitus without complications; Z79.4 Long term (current) use of insulin; Z96.41 Presence of insulin pump (external) (internal); F17.200 Nicotine dependence, unspecified, uncomplicated; Z20.822 Contact with and (suspected) exposure to COVID-19; Z82.49 Family history of ischemic heart disease and other diseases of the circulatory system
CPT/HCPCS: 93005; 85025 ×2; 80048; 36415; 83735 ×2; 82550; 85610; 82565; 82947 ×4; 81003; 84484; 80053; 83880; 70450; 71275; 70496; 70498; 74175; 71045; 70553; 70544; 70549; 97161; 94760; 96374; 99285; U0003; Q9967; A9577; J1953; J7030 ×2; G0378 ×3